=== PATIENT | male | born 1980 | race Two or more races ===

== ENCOUNTER 2017-07-11 07:17 | Day surgery (SDC) | payer BC ==
--- NOTE | 2017-07-10 16:23 | Pre-Procedure Note/Attestation ---
Pre-Procedure Note/Attestation Complete Prior to Procedure Planned Procedure: not applicable Procedure Narrative: 1. Uvulopalatoplasty 2. Partial reduction base of tongue with radiofrequency waves. Indications for Procedure Pre-Operative Diagnosis: 1. Sleep apnea 2. hypertrophied base of tongue and soft palate. Attestation I attest that I discussed the nature of the procedure; its benefits; risks and complications; and alternatives (and the risks and benefits of such alternatives ), prior to the procedure, with the patient (or the patient's legal statement services representative). I attest that, if there was a reasonable possibility of needing a blood transfusion, the patient (or the patient's legal statement services representative) was given the [place] [employer] standardized written summary, pursuant to the [place] Blood Safety Act ([place] Health and Safety Code # 1645, as amended). I attest that I re-evaluated the patient just prior to the surgery and that there has been no change in the patient's H&P, faxed to hospital by my staff last week. I will sign once posted. Includes H/P, labs, EKG and CXR. MATT GRECO Jul 10, 2017 16:23
--- NOTE | 2017-07-10 16:24 | Brief Operative Note ---
Immediate Post Operative Note Operative Note Chief Complaint: Sleep apnea Pre-op Diagnosis: 1. Sleep apnea 2. hypertrophied base of tongue and soft palate. Procedure: 1. Uvulopalatoplasty 2. Partial reduction base of tongue with radiofrequency waves. Post-op Diagnosis: same as pre-op Surgeon: Matt Greco MD Governor Assembler Hydraulic: none Additional Surgeons: none Anesthesiologist: Dr. Delaney Anesthesia: general Specimen: none Complications: none Condition: stable Fluids: D5LR 500 cc Estimated Blood Loss: volume - 5 cc Packing: none Implant(s) used?: No MATT GRECO Jul 10, 2017 16:24
--- NOTE | 2017-07-10 16:27 | Discharge Instructions ---
Discharge Instructions Discharge Instructions Follow up with: End of this week-pt has appt already Diet: regular Resume Normal Activity?: No Activity: light activity Pneumonia Vaccine: pt refused vaccine Influenza Vaccine (Jan to Jun): pt refused vaccine Follow Up Orders pt has printed instructions re post op from his pre op visit where we reviewed the directions. Return to Work/School on: Jul 24, 2017 For Surgical Patients May shower: Yes Contact your physician for: bleeding, pain, tenderness, redness, swelling, yellowish discharge in the op. site For Congestive Heart Failure Reminder Report to your physician any weight gain of 5 pounds or more in one week. MATT GRECO Jul 10, 2017 16:27
--- NOTE | 2017-07-10 16:32 | General Progress Note ---
Progress Note Progress Note post op note set up pre op but clicked sign instead of draft. My mistake. Will revisit tomorrow. MATT GRECO Jul 10, 2017 16:32
[2017-07-11] VITALS (9 sets, daily range): BP systolic 103–146; BP diastolic 62–99
[~2017-07-11] VITALS: Ht 182.9 cm; Wt 93.0 kg
[~2017-07-11 07:17] MED LIST: Dexamethasone 4mg/ml vial IVP SCH; NKM; ceFAZolin sod 1 GM in D5W 55 ML IV SCH
[2017-07-11] MEDS ORDERED: Lidocaine 1% Plain 30 ml INJ ONE (07:33)
[2017-07-11] MEDS ORDERED: Bupivacaine 0.25% Inj 30ml INJ ONE (07:33)
[2017-07-11] MEDS ORDERED: Succinylcholine 20mg/ml 10ml vial ONE (08:45)
[2017-07-11] MEDS ORDERED: Norco 5mg/325mg tab ORAL PRN (08:45)
[2017-07-11] MEDS ORDERED: Glycopyrrolate 0.2mg/ml 1ml Vial ONE (08:45)
[2017-07-11] MEDS ORDERED: fentaNYL 100 mcg/2 mL IV ONE (08:45)
[2017-07-11] MEDS ORDERED: Midazolam 2mg/2ml Inj ONE (08:45)
[2017-07-11] MEDS ORDERED: Ketorolac 30mg Inj ONE (08:45)
[2017-07-11] MEDS ORDERED: Sterile Water Irrig 1000ml IRRIG ONE (08:45)
[2017-07-11] MEDS ORDERED: Neostigmine 1mg/ml 10ml Inj ONE (08:45)
[2017-07-11] MEDS ORDERED: Zemuron 50mg/5ml Inj IV ONE (08:45)
[2017-07-11] MEDS ORDERED: NS Irrig 1000ml ONE (08:45)
[2017-07-11] MEDS ORDERED: Propofol 200mg/20ml IV ONE (08:45)
--- NOTE | 2017-07-11 08:48 | General Progress Note ---
Progress Note Progress Note Discharge note reviewed postop. No change. MATT GRECO Jul 11, 2017 08:48
[2017-07-11] MEDS ORDERED: LR 1000ml 1,000 ML IVLG SCH (09:05)
--- NOTE | 2017-07-11 09:11 | Anethesia Preoperative Eval ---
Anesthesia Pre-op PMH/ROS General Date of Evaluation: Jul 11, 2017 Time of Evaluation: 07:35 Anesthesiologist: Olivia ASA Score: ASA 2 Mallampati Score Class I : Soft palate, uvula, fauces, pillars visible Class II: Soft palate, uvula, fauces visible Class III: Soft palate, base of uvula visible Class IV: Only hard plate visible Mallampati Classification: Class III Surgeon: Belkis Diagnosis: Sleep apnea Surgical Procedure: Uvuloplasty Anesthesia History: none Social History: smoking - h/o Family History: no anesthesia problems Allergies: Coded Allergies: No Known Allergies (Unverified , 07/11/17) Medications: see eMAR Past Medical History Cardiovascular: Reports: HTN - borderline; Denies: CAD, [place], valve dz, arrhythmia, other Pulmonary: Reports: SHANELLE; Denies: asthma, COPD, other Gastrointestinal/Genitourinary: Reports: GERD; Denies: CRI, ESRD, other Neurologic/Psychiatric: Denies: dementia, CVA, depression/anxiety, TIA, other Endocrine: Denies: DM, hypothyroidism, steroids, other HEENT: Denies: cataract (L), cataract (R), glaucoma, [place] (L), [place] (R), other Hematology/Immune: Denies: anemia, DVT, bleeding disorder, other Musculoskeletal/Integumentary: Denies: OA, RA, DJD, DDD, edema, other Other: other - overweight PMH Narrative: as above PSxH Narrative: Uvuloplasty Anesthesia Pre-op Phys. Exam Physician Exam Last Vital Signs Date Time Temp Pulse Resp B/P (MAP) Pulse Ox O2 Delivery O2 Flow Rate FiO2 07/11/17 09:05 73 19 134/84 99 Simple Mask 6.0 07/11/17 08:58 97.3 97.3 Constitutional: NAD Neurologic: CN 2-12 intact Cardiovascular: RRR, no M/R/G Respiratory: CTA Gastrointestinal: S/NT/ND Airway Exam Mallampati Score: Class III MO: full Neck: short ROM: full Teeth: intact Dentures: no upper, no lower Anesthesia Pre-op A/P Labs see chart Studies Pre-op Studies: EKG Risk Assessment & Plan Assessment: ASA 2 Plan: GA with ETT Status Change Before Surgery: No Pre-Antibiotics Drug: Ancef 2 gr. Given Within 1 Hr of Incision: Yes Time Given: 07:58 CAL AVALOS M.D. Jul 11, 2017 09:11
--- NOTE | 2017-07-11 09:13 | Immediate Post-Op Evaluation ---
Immediate Post-Op Evalulation Immediate Post-Op Evalulation Procedure: Uvuloplasty tong base reduction Date of Evaluation: Jul 11, 2017 Time of Evaluation: 09:12 IV Fluids: 600 Blood Products: none Estimated Blood Loss: min Urinary Output: none Blood Pressure Systolic: 134 Blood Pressure Diastolic: 85 Pulse Rate: 63 Respiratory Rate: 20 O2 Sat by Pulse Oximetry: 99 Temperature (Fahrenheit): 97.4 Pain Score (1-10): 2 Nausea: No Vomiting: No Complications none Patient Status: awake, patent, extubated, none Hydration Status: adequate CAL AVALOS M.D. Jul 11, 2017 09:13
[2017-07-11] MEDS ORDERED: Hydromorphone 0.5mg/0.5ml inj IVP PRN (09:15)
[2017-07-11] MEDS ORDERED: Ketorolac 30mg Inj IV PRN (09:15)
[2017-07-11] MEDS ORDERED: DiphenhydrAMINE 50mg/ml Inj IVP PRN (09:15)
[2017-07-11] MEDS ORDERED: Meperidine 50mg/ml Inj(FOR RIGORS ONLY) IV PRN (09:15)
--- NOTE | 2017-07-11 10:09 | 48 Hour Post Anesthesia Eval ---
Post Anesthesia Evaluation Procedure: Uvuloplasty tong base reduction Date of Evaluation: Jul 11, 2017 Time of Evaluation: 10:08 Blood Pressure Systolic: 119 0: 68 Pulse Rate: 74 Respiratory Rate: 20 Temperature (Fahrenheit): 97.8 O2 Sat by Pulse Oximetry: 99 Airway: patent Nausea: No Vomiting: No Pain Intensity: 2 Hydration Status: adequate Cardiopulmonary Status: stable Mental Status/LOC: patient returned to baseline Follow-up Care/Observations: n/a Post-Anesthesia Complications: none Follow-up care needed: ready to discharge CAL AVALOS M.D. Jul 11, 2017 10:09
--- NOTE | 2017-07-11 17:15 | Operative Note - Dictated ---
DATE OF OPERATION: 07/11/2017 SURGEON: Rajeev Tamayo M.D. [employer] COUNSELORS: None. ANESTHESIOLOGIST: Flako Cochran M.D. ANESTHESIA: Oral endotracheal anesthesia as well as 10 mL of a 50-50 mixture of 1% lidocaine with Sensorcaine 0.5% with 1:200,000 epinephrine. PREOPERATIVE DIAGNOSIS: Hypertrophied base of tongue and soft palate. POSTOPERATIVE DIAGNOSIS: Hypertrophied base of tongue and soft palate. FINDINGS: Hypertrophied base of tongue and soft palate. PROCEDURE: Uvulopalatopharyngoplasty of soft palate and partial reduction base of tongue, stage I. TECHNIQUE: The patient was prepped and draped in usual manner. The oral endotracheal anesthesia after a time-out was performed. All agreed as to what was to be done. I then injected the aforementioned lidocaine, Sensorcaine, and epinephrine mixture. I then proceeded to hold down the tongue and used radiofrequency setting of 6 x 10 seconds midline soft palate and 1 cm to either side a total of 6 punctures. I then proceeded to do the same of the tongue 1 cm behind the circumvallate papillae and 1 cm laterally midline and then 1 cm anterior circumvallate papillae and 1 cm lateral in either side and finally the 5th and 6th 2 cm anterior circumvallate papillae and 1 cm lateral. Sponge and needle count was correct. ESTIMATED BLOOD LOSS: 5 mL. COUNTS: None. DRAINS: None. Rajeev Tamayo M.D. DR: DOROTHY JOB#: [id number] CC: RADHA
== END 2017-07-11 11:35 | disposition home or self-care (01) ==
LOC: SUR 07:17
DX: K14.8 Other diseases of tongue (principal); I10 Essential (primary) hypertension; E66.3 Overweight; Z68.27 Body mass index [BMI] 27.0-27.9, adult; Z87.891 Personal history of nicotine dependence; Z82.49 Family history of ischemic heart disease and other diseases of the circulatory system; K21.9 Gastro-esophageal reflux disease without esophagitis; G47.33 Obstructive sleep apnea (adult) (pediatric)
CPT/HCPCS: 42145; J0330; J0690; J1170; J1885; J2001; J2175; J2250; J2704; J2710; J3010; J3490; 94003; 94150